=== PATIENT | male | born 1950 | race Caucasian/White ===

== ENCOUNTER 2021-06-19 16:50 | Inpatient (IN) | payer MEDICARE ==
[~2021-06-19] VITALS: Ht 175.3 cm; Wt 73.5 kg
--- NOTE | 2021-06-19 18:10 | NUR ---
Pacemaker being interrogated now.
--- NOTE | 2021-06-19 18:11 | NUR ---
Pt sent from [facility] for neck pain that became acute on chronic yesterday. Pt states he has arthritis in his neck with pain in his "spine." Pt reports sudden worsening "in my hair line and in my back" worse on R side and down in to shoulder. Connected to all monitors upon arrival. NADN. DE LA O.
--- NOTE | 2021-06-19 19:04 | NUR ---
Bedside report to CELSA Franklin. All questions answered, transfer of care at this time.
--- NOTE | 2021-06-19 20:24 | NUR ---
ATTEMPTED REPORT TO SHRUTHI STEEN. UNABLE TO TAKE REPORT AT THIS TIME
[2021-06-19] MEDS: HEPARIN 5,000 UNITS/ML, 1ML SQ SCH (20:30)
[2021-06-19] MEDS ORDERED: POLYETHYLENE GLYCOL 17 GM PACKET PO PRN (20:30)
[2021-06-19] MEDS ORDERED: METHOCARBAMOL 500 MG TABLET PO PRN (20:30)
[2021-06-19] MEDS ORDERED: BISACODYL 10 MG SUPP PR PRN (20:30)
[2021-06-19] MEDS ORDERED: ACETAMINOPHEN 325 MG TABLET PO PRN (20:30)
[2021-06-19] MEDS ORDERED: morphine SULFATE 10 MG/ML, 1ML IVPush PRN (20:30)
[2021-06-19] MEDS ORDERED: ONDANSETRON 2MG/ML, 2ML IVPush PRN (20:30)
--- NOTE | 2021-06-19 20:57 | NUR ---
REPORT GIVEN TO YAMILETH
[2021-06-19] MEDS: SODIUM CHLORIDE FLUSH 10ML SYR IVF SCH (21:00)
[2021-06-19] MEDS ORDERED: OMNIPAQUE 350 MG/ML, 100ML BOTTLE ONE (21:15)
[2021-06-19] MEDS: OXYcodone IR 5MG TABLET PO PRN (22:30)
[2021-06-19 23:04] VITALS: BP 118/75
[2021-06-20 01:35] VITALS: BP 112/71
[2021-06-20] MEDS: OXYcodone IR 5MG TABLET PO PRN ×4 (02:36→19:23)
[2021-06-20] MEDS: HEPARIN 5,000 UNITS/ML, 1ML SQ SCH ×3 (04:30→20:20)
[2021-06-20 05:10] LABS: BASOPHILS % (AUTO) 0 % (0-1); EOSINOPHILS % (AUTO) 0 % (1-7); LYMPHOCYTES % (AUTO) 4 % (22-44); MEAN CORPUSCULAR HEMOGLOBIN 35.1 pg (27.5-34.5); MEAN CORPUSCULAR HGB CONC 34.4 g/dL (33.2-36.2); MEAN PLATELET VOLUME 8.1 fL (7.4-10.4); MONOCYTES % (AUTO) 7 % (2-9); NEUTROPHILS % (AUTO) 89 % (42-75); PLATELET COUNT 213 x10^3/uL (130-400); RED BLOOD COUNT 3.17 x10^6/uL (4.38-5.82); RED CELL DISTRIBUTION WIDTH 15.8 % (9.4-14.8)
[2021-06-20 05:12] LABS: ANION GAP 13 mmol/L (5-15); CALCIUM 9.3 mg/dL (8.5-10.1); CHLORIDE 90 mmol/L (98-107); CREATININE 8.08 mg/dL (0.7-1.3)
[2021-06-20 07:35] VITALS: BP 110/65
[2021-06-20] MEDS: SENNA/DOCUSATE TABLET PO SCH (09:00)
[2021-06-20] MEDS: SODIUM CHLORIDE FLUSH 10ML SYR IVF SCH ×2 (10:18→20:21)
[2021-06-20 15:59] VITALS: BP 114/68
[2021-06-20 20:09] VITALS: BP 115/64
[2021-06-21] MEDS: OXYcodone IR 5MG TABLET PO PRN ×5 (00:12→23:03)
[2021-06-21 00:15] VITALS: BP 99/63
[2021-06-21] MEDS: HEPARIN 5,000 UNITS/ML, 1ML SQ SCH ×2 (04:51→12:30)
[2021-06-21 08:00] VITALS: BP 108/66
[2021-06-21] MEDS ORDERED: CYAN500T42 PO (08:35)
[2021-06-21] MEDS ORDERED: APIX5TAB4 PO (08:35)
[2021-06-21] MEDS ORDERED: SILD100T PO (08:35)
[2021-06-21] MEDS ORDERED: LEVO75CA5 PO (08:35)
[2021-06-21] MEDS ORDERED: SEVE800T8 PO (08:35)
[2021-06-21] MEDS ORDERED: AMIO200T42 PO (08:35)
[2021-06-21] MEDS ORDERED: SIMV10TA18 PO (08:35)
[2021-06-21] MEDS ORDERED: OMEP40CA8 PO (08:35)
[2021-06-21] MEDS ORDERED: OMEG1CAP6 PO (08:35)
[2021-06-21 09:32] LABS: BASOPHILS % (AUTO) 1 % (0-1); EOSINOPHILS % (AUTO) 0 % (1-7); LYMPHOCYTES % (AUTO) 9 % (22-44); MEAN CORPUSCULAR HEMOGLOBIN 35.1 pg (27.5-34.5); MEAN CORPUSCULAR HGB CONC 34.1 g/dL (33.2-36.2); MEAN PLATELET VOLUME 8.3 fL (7.4-10.4); MONOCYTES % (AUTO) 12 % (2-9); NEUTROPHILS % (AUTO) 78 % (42-75); PLATELET COUNT 221 x10^3/uL (130-400); RED BLOOD COUNT 3.48 x10^6/uL (4.38-5.82); RED CELL DISTRIBUTION WIDTH 15.4 % (9.4-14.8)
[2021-06-21 09:39] LABS: ALBUMIN 2.8 g/dL (3.4-5.0); ANION GAP 12 mmol/L (5-15); CALCIUM 9.4 mg/dL (8.5-10.1); CHLORIDE 90 mmol/L (98-107); CREATININE 6.02 mg/dL (0.7-1.3)
[2021-06-21] MEDS ORDERED: MIDO5TAB4 PO ×3 (10:13)
[2021-06-21] MEDS: SODIUM CHLORIDE FLUSH 10ML SYR IVF SCH ×2 (10:44→20:03)
[2021-06-21] MEDS: SENNA/DOCUSATE TABLET PO SCH (10:45)
[2021-06-21 12:40] VITALS: BP 96/62
[2021-06-21] MEDS ORDERED: MIDODRINE 5 MG TABLET PO ONE (13:30)
[2021-06-21] MEDS: SEVELAMER CARBONATE 800MG TAB PO SCH (18:55)
[2021-06-21 19:28] VITALS: BP 90/51
[2021-06-21] MEDS: OMEGA-3/FISH OIL CAPSULE PO SCH (20:03)
[2021-06-21] MEDS: APIXABAN 5 MG TABLET PO SCH (20:03)
[2021-06-21] MEDS ORDERED: SIMVASTATIN 10 MG TABLET PO SCH (21:00)
[2021-06-21 22:19] VITALS: BP 93/51
[2021-06-22 03:01] VITALS: BP 95/58
[2021-06-22] MEDS ORDERED: PANTOPRAZOLE 40MG TABLET PO SCH (06:00)
[2021-06-22 06:53] VITALS: BP 103/66
[2021-06-22] MEDS ORDERED: MIDODRINE 5 MG TABLET PO SCH ×3 (07:30→16:30)
[2021-06-22] MEDS ORDERED: LEVOTHYROXINE 75 MCG TABLET PO SCH (07:30)
[2021-06-22] MEDS: SEVELAMER CARBONATE 800MG TAB PO SCH ×2 (08:11→11:48)
[2021-06-22] MEDS: SENNA/DOCUSATE TABLET PO SCH (08:12)
[2021-06-22] MEDS: APIXABAN 5 MG TABLET PO SCH (08:14)
[2021-06-22] MEDS: OMEGA-3/FISH OIL CAPSULE PO SCH ×2 (08:15→16:25)
[2021-06-22] MEDS: SODIUM CHLORIDE FLUSH 10ML SYR IVF SCH (09:00)
[2021-06-22] MEDS ORDERED: CYANOCOBALAMIN 1,000 MCG TABLET PO SCH (09:00)
[2021-06-22] MEDS ORDERED: AMIODARONE 200 MG TABLET PO SCH (09:00)
[2021-06-22 14:11] VITALS: BP 98/61
[2021-06-22] MEDS: OXYcodone IR 5MG TABLET PO PRN (14:23)
== END 2021-06-22 16:25 | disposition home or self-care (01) | DRG 551 ==
LOC: ED 20:58 → EDIP 21:20 → 4WST 21:23
PROVIDERS: ADMIT Student in an Organized Health Care Education/Training Program; ATTEND Internal Medicine
PROC: 5A1D70Z Performance of Urinary Filtration, Intermittent, Less than 6 Hours Per Day (ICD-10-PCS; principal; 2021-06-20)
PROC: 5A1D70Z Performance of Urinary Filtration, Intermittent, Less than 6 Hours Per Day (ICD-10-PCS; 2021-06-21)
DX: M48.02 Spinal stenosis, cervical region (principal); N18.6 End stage renal disease; D68.69 Other thrombophilia; I48.20 Chronic atrial fibrillation, unspecified; E87.1 Hypo-osmolality and hyponatremia; G89.29 Other chronic pain; M19.90 Unspecified osteoarthritis, unspecified site; E03.9 Hypothyroidism, unspecified; D63.1 Anemia in chronic kidney disease; M50.321 Other cervical disc degeneration at C4-C5 level; E78.5 Hyperlipidemia, unspecified; I25.10 Atherosclerotic heart disease of native coronary artery without angina pectoris; I71.4 Abdominal aortic aneurysm, without rupture; I25.2 Old myocardial infarction; Z82.49 Family history of ischemic heart disease and other diseases of the circulatory system; Z99.2 Dependence on renal dialysis; Z88.6 Allergy status to analgesic agent; Z88.5 Allergy status to narcotic agent; Z90.49 Acquired absence of other specified parts of digestive tract; Z79.01 Long term (current) use of anticoagulants; Z79.899 Other long term (current) drug therapy
CPT/HCPCS: 36415; 70100; 72126; 80048; 80069; 80074; 85025; 85651; 87040; 90935; G0378; J1644; Q9967